=== PATIENT | female | born 1945 | race Caucasian/White ===

== ENCOUNTER 2018-04-08 08:29 | Outpatient (CLI) | payer MEDICARE, OTHER ==
--- NOTE | 2018-04-08 14:00 | NM ---
GASTRIC EMPTYING STUDY: DATE: 04/08/18. HISTORY: Periumbilical pain. [place]'s esophagus without dysplasia. Diarrhea, unspecified. RADIOPHMARACEUTICAL: 2 mCi Technetium 99m sulfur colloid mixed in scrambled eggs, p.o. VIEWS OBTAINED: Anterior. FINDINGS: Sequential anterior imaging of the abdomen was performed after the administration of radiopharmaceuti paulino mixed in egg. There is 52% emptying at 30 minutes, 74% emptying at 1 hour, 82% emptying at 2 barron rs, 92% emptying at 3 hours, and 96% emptying at 4 hours. The T-1/2 is 25 minutes. IMPRESSION: Normal gastric emptying with 74% emptying at 1 hour, 92% emptying at 3 hours, and 96% emptying at 4 h ours. POS: NICOLE
== END 2018-04-08 08:30 | disposition home or self-care (01) ==
LOC: NM 08:29
PROVIDERS: ATTEND Internal Medicine
DX: R10.33 Periumbilical pain (principal); R19.7 Diarrhea, unspecified; K22.70 Barrett's esophagus without dysplasia
CPT/HCPCS: 78264; A9541

== ENCOUNTER 2018-05-08 09:33 | Day surgery (SDC) | payer MEDICARE, OTHER ==
--- NOTE | 2018-05-08 13:36 | OP ---
DATE OF PROCEDURE: 05/08/2018 PROCEDURE: Esophagogastroduodenoscopy with biopsy. INDICATIONS FOR PROCEDURE: Periumbilical abdominal pain, [place]'s esophagus. DESCRIPTION OF PROCEDURE: After the risks and benefit of the procedure were explained to the patient including risks of bleeding, infection, perforation, reaction to anesthesia and/or pain, informed co nsent was obtained. The patient was then taken to the endoscopy suite where deep sedation was admini stered via propofol and anesthesia support. Once adequate sedation was achieved, the standard gastro scope was introduced into the mouth with intubation of the esophagus, stomach and proximal small inte aretha with the findings listed below. The patient tolerated the procedure well with no immediate per ioperative complications. FINDINGS: Esophagus: Normal-appearing mucosa was seen in both the proximal and mid esophagus. In the distal e sophagus, salmon-colored mucosa was seen extending proximally from the GE junction in a circumferenti al fashion from 37 cm to 36 cm. Then, with the maximal extension of the same color mucosa was also n oted up to 35 cm. There was no evidence of associated erosions, ulcerations, mass lesions or active/ recent bleeding associated with the salmon color mucosa. Given her history of [place]'s esophagus, b iopsies were taken at the GE junction at approximately 37 cm and then again at the maximal extension at 35 cm. The diaphragmatic pinch was then seen at 39 cm and with the GE junction at 37 cm was denoting a 2 cm hiatal hernia. Stomach: Normal appearing mucosa was seen in the gastric cardia, fundus, body, greater curvature, an trum and incisura. There was no evidence of erosions, ulcerations, mass lesions or active/recent ble eding. Duodenum: Normal appearing mucosa was seen in both the duodenal bulb and second portion of the duode num. There was no evidence of erosions, ulcerations, mass lesions or active/recent bleeding. Multip le random biopsies were taken of both the duodenal bulb and proximal small intestine for possible taylor coidosis of the upper GI tract. IMPRESSION: 1. 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 2. A 2 cm hiatal hernia. 3. Normal appearing gastric and duodenal mucosa. 4. No evidence of erosive esophagitis was seen during this examination. RECOMMENDATIONS: 1. We will follow up on biopsy results with further upper endoscopy based on those pathology results . 2. Would continue with current regimen of omeprazole for mid epigastric/periumbilical abdominal pain . 3. We would continue with loperamide administration for now for diarrhea that could potentially cont ribute to her abdominal pain. 4. Follow up in the GI clinic 3 weeks (already scheduled for 06/03/2018).
== END 2018-05-08 12:20 | disposition home or self-care (01) ==
LOC: SDC 09:33
PROVIDERS: ATTEND Internal Medicine
PROC: 0DB98ZX Excision of Duodenum, Via Natural or Artificial Opening Endoscopic, Diagnostic (ICD-10-PCS; principal; 2018-05-08)
PROC: 0DB58ZX Excision of Esophagus, Via Natural or Artificial Opening Endoscopic, Diagnostic (ICD-10-PCS; 2018-05-08)
DX: R10.33 Periumbilical pain (principal); Z88.5 Allergy status to narcotic agent; Z88.8 Allergy status to other drugs, medicaments and biological substances; Z79.899 Other long term (current) drug therapy
CPT/HCPCS: 88305; 88312; 88313

== ENCOUNTER 2018-06-14 09:46 | Outpatient (CLI) | payer MEDICARE, OTHER ==
[2018-06-14] MEDS ORDERED: ISOVUE-370 76%-LOCM 1 ML ONE (13:32)
== END 2018-06-14 09:47 | disposition home or self-care (01) ==
LOC: BICCT 09:46
PROVIDERS: ATTEND Internal Medicine
DX: K22.70 Barrett's esophagus without dysplasia (principal); R10.33 Periumbilical pain; R19.7 Diarrhea, unspecified
CPT/HCPCS: 74177; 82565

== ENCOUNTER 2018-07-10 07:20 | Outpatient (CLI) | payer MEDICARE, OTHER ==
--- NOTE | 2018-07-11 14:04 | PFT ---
PATIENT HISTORY: HEIGHT: 62 IN WEIGHT: 145 SMOKER: NEVER HOW LONG: PACKS PER DAY PRODUCTIVE COUGH: LUNG DISEASE: PHYSICIAN INTERPRETATION FINAL REPORT: Physician report: FEV1 is 1.09 liters which is 55% predicted. Forced vital capacity is 1.41 liters which is 53% predicted. There is no improvement in flows after bronchodilatation. The FEV1/FVC ratio is 77. The residual volume was 58% predicted and the total lung capacity is 55% predicted. The flow volume loop looks extremely restricted. DLCO was 38% predicted and does not correct fully for volume. The maximum ventilatory volume is 37.49, but this is appropriate for her FEV1. IMPRESSION: This is a moderate to severe restrictive impairment gas exchange is reduced and does not fully correct for the reduce volume. Strainer Cleaner: Vein Access Technician: LEONEL HERNANDEZ
== END 2018-07-10 07:21 | disposition home or self-care (01) ==
LOC: CP 07:20
PROVIDERS: ATTEND Orthopaedic Surgery Sports Medicine
DX: D86.9 Sarcoidosis, unspecified (principal)
CPT/HCPCS: 94060; 94727; 94729

== ENCOUNTER 2018-07-16 10:52 | Day surgery (SDC) | payer MEDICARE, OTHER ==
[2018-07-15 09:21] VITALS: BMI 27.1
--- NOTE | 2018-07-16 12:45 | OP ---
DATE OF PROCEDURE: 07/16/2018 PROCEDURE: Colonoscopy with polypectomy. INDICATION FOR PROCEDURE: Periumbilical abdominal pain, abnormal GI imaging. DESCRIPTION OF PROCEDURE: After the risks and benefits of the procedure were explained to the patien t including risks of bleeding, infection, perforation, reactions to anesthesia, aspiration and/or brittany n, informed consent was obtained. The patient was then taken to the endoscopy suite where deep sedat ion was administered via propofol and anesthesia support. Once adequate sedation was achieved, and a fter a digital rectal external examination, the standard colonoscope was introduced into the rectum a nd advanced to the terminal ileum without difficulty. The quality of the prep was excellent. The sc ope was then withdrawn with close inspection of the colonic mucosa. The patient tolerated the proced ure well with no immediate perioperative complications. DIGITAL RECTAL EXAMINATION: Large external hemorrhoids were seen on external exam, but without signs of bleeding. COLON FINDINGS: Normal appearing mucosa was seen in the terminal ileum as well as at the ileocecal v alve. A 4 mm polyp was seen in the cecum right at the appendiceal orifice. It was completely remove d with cold snare polypectomy and placed in a specimen jar for evaluation. Otherwise, normal appeari ng mucosa was seen in the remainder of the cecum as well as the ascending colon. The previously desc ribed narrowing of the ascending colon on the recent CT scan was not observed during the colonoscopy today with no abnormalities seen in this particular region. Normal appearing mucosa was also seen in the transverse, descending, sigmoid colon, and rectum. Hypertrophied anal papillae were seen on rec frances retroflexion. IMPRESSION: 1. A 4 mm cecal polyp directly at the appendiceal orifice, status post cold snare polypectomy. 2. Hypertrophied anal papillae. 3. Large external hemorrhoids. 4. No etiology for her diarrhea was seen there during this examination. 5. The previously described narrowing of the ascending colon was not seen during today's examination . RECOMMENDATIONS: 1. We would continue fiber supplementation and loperamide as administration daily for chronic diarrh ea. 2. We will follow up on biopsy results with repeat colonoscopy interval depending on pathology read. 3. We would have the patient follow up in the GI clinic in 3 weeks for reevaluation and discussion o f current clinical status.
[2018-07-16] MEDS ORDERED: Lidocaine 1% PF 5 ML VIAL ONE (14:23)
[2018-07-16] MEDS ORDERED: PROPOFOL 200 MG/20 ML VIAL ONE (14:23)
== END 2018-07-16 12:45 | disposition home or self-care (01) ==
LOC: SDC 10:52
PROVIDERS: ATTEND Internal Medicine
PROC: 0DBH8ZX Excision of Cecum, Via Natural or Artificial Opening Endoscopic, Diagnostic (ICD-10-PCS; principal; 2018-07-16)
DX: D12.0 Benign neoplasm of cecum (principal); K64.4 Residual hemorrhoidal skin tags; K22.70 Barrett's esophagus without dysplasia; Z88.8 Allergy status to other drugs, medicaments and biological substances; Z79.899 Other long term (current) drug therapy
CPT/HCPCS: 88305; J2001; J2704

== ENCOUNTER 2018-09-18 19:30 | Outpatient (CLI) | payer MEDICARE, OTHER | END 2018-09-18 19:31 | disposition home or self-care (01) | LOC: SLEEPLAB 19:30 | PROVIDERS: ATTEND Internal Medicine | DX: G47.33 Obstructive sleep apnea (adult) (pediatric) (principal); R53.83 Other fatigue; K21.9 Gastro-esophageal reflux disease without esophagitis; R06.83 Snoring; R35.1 Nocturia; I10 Essential (primary) hypertension; G47.10 Hypersomnia, unspecified; G47.00 Insomnia, unspecified; D86.9 Sarcoidosis, unspecified; R09.02 Hypoxemia; E66.9 Obesity, unspecified; Z68.26 Body mass index [BMI] 26.0-26.9, adult | CPT/HCPCS: 95810 ==

== ENCOUNTER 2018-10-04 20:30 | Outpatient (CLI) | payer MEDICARE, OTHER | END 2018-10-04 20:31 | disposition home or self-care (01) | LOC: SLEEPLAB 20:30 | PROVIDERS: ATTEND Internal Medicine | DX: G47.33 Obstructive sleep apnea (adult) (pediatric) (principal); R53.83 Other fatigue; K21.9 Gastro-esophageal reflux disease without esophagitis; E66.9 Obesity, unspecified; R06.83 Snoring; I10 Essential (primary) hypertension; R35.1 Nocturia; R09.02 Hypoxemia; G47.10 Hypersomnia, unspecified; Z68.26 Body mass index [BMI] 26.0-26.9, adult | CPT/HCPCS: 95811 ==

== ENCOUNTER 2019-08-06 09:02 | Outpatient (CLI) | payer MEDICARE, OTHER ==
--- NOTE | 2019-08-08 11:24 | PFT ---
PATIENT HISTORY: HEIGHT: 62 IN WEIGHT: 149 SMOKER: NO HOW LONG: NEVER PACKS PER DAY: NA PRODUCTIVE COUGH: LUNG DISEASE: PHYSICIAN INTERPRETATION FINAL REPORT: Patient had good effort and good cooperation. PFT data: FVC 1.56 (60%), FEV1 1.26 (65%) DIFFUSION 7.43 (36%) There is a symmetric reduction the FEV1 and the FVC. The ratio is suggestive of a restrictive air flow limitation that was previously confirmed on low lung volumes. mild to moderate reduction in the residual volume. The Diffusion Capacity severely impaired. Compared to June 2018, there has been no significant change in the FVC, FEV1, or Diffusion Capacity. IMPRESSION: Overall, these pulmonary function studies are consistent with mild restrictive lung disease with severe reduction in gas exchange that have been stable times one year. Pen Maker: LEONEL Photoengraving Etcher Apprentice: LEONEL HERNANDEZ
== END 2019-08-06 09:03 | disposition home or self-care (01) ==
LOC: CP 09:02
PROVIDERS: ATTEND Internal Medicine
DX: D86.9 Sarcoidosis, unspecified (principal); G47.33 Obstructive sleep apnea (adult) (pediatric)
CPT/HCPCS: 94010; 94729

== ENCOUNTER 2024-04-17 08:40 | Outpatient (CLI) | payer MEDICARE, OTHER | END 2024-04-17 08:41 | disposition home or self-care (01) | LOC: BICCT 08:40 | PROVIDERS: ATTEND Physician Assistant Medical | DX: K21.9 Gastro-esophageal reflux disease without esophagitis (principal); K22.70 Barrett's esophagus without dysplasia; K52.9 Noninfective gastroenteritis and colitis, unspecified; J44.9 Chronic obstructive pulmonary disease, unspecified; K44.9 Diaphragmatic hernia without obstruction or gangrene; R63.0 Anorexia; R63.4 Abnormal weight loss | CPT/HCPCS: 74177; 82565 ==